=== PATIENT | female | born 1955 | race Caucasian/White ===

== ENCOUNTER → 2016-02-28 | Outpatient (CLI) | payer BC ==
--- NOTE | 2016-02-28 15:49 | RAD ---
CT study of the abdomen and pelvis without contrast Indications: Left flank pain and left lower quadrant abdominal pain for 2 days. Technique: Noncontrast helical CT scan abdomen and pelvis was performed using the CT stone protocol. Without contrast, the sensitivity to detect organ pathology and GI tract pathology is decreased. PQRS Compliance Statement: One or more of the following individualized dose reduction techniques were utilized for this examination: 1. Automated exposure control 2. Adjustment of the mA and/or kV according to patient size 3. Use of iterative reconstruction technique Findings: There is a small hypodense nodule within the dome of the right lobe liver which demonstrates Hounsfield unit measurements typical of a cyst. More inferiorly within the lateral aspect of the posterior segment of the right lobe of the liver, a small hypodense nodule is seen which most likely represents another small cyst although it is indeterminate due to it's smaller size and Hounsfield unit measurements of 24. The spleen is not enlarged. The pancreas is homogeneous on this noncontrast study. The gallbladder is normal and no extra hepatic biliary ductal dilatation is seen. No adrenal mass is evident. Nonobstructing punctate stones of both kidneys are seen. No hydronephrosis or hydroureter or ureteral stone is seen on either side. There is a mass of the lower pole of the right kidney measuring 4.6 cm which demonstrates Hounsfield unit measurements in the 30s. Therefore, could represent solid mass or hyperdense cyst. Recommend sonography for further evaluation. No focal aneurysmal dilatation of the abdominal aorta is seen. No enlarged abdominal or pelvic lymphadenopathy is evident. No uterine mass or fibroid is seen. No dominant ovarian cyst or mass is seen. Urinary bladder wall is smooth. No free air or free fluid or inflammatory change is seen. No lung base consolidation is evident. No osteolytic process is seen. IMPRESSION: Lower pole right renal mass. Recommend sonography for further evaluation. Small indeterminate hypodense nodule of the posterior segment of the right lobe of liver most likely represents a small cyst. Nonobstructing punctate stones of both kidneys.. No acute abnormality of the abdomen or pelvis is seen otherwise..
== END | disposition home or self-care (01) ==
LOC: CT 14:29
PROVIDERS: ATTEND Nurse Practitioner
DX: N20.0 Calculus of kidney (principal); R31.9 Hematuria, unspecified; M54.9 Dorsalgia, unspecified; E11.9 Type 2 diabetes mellitus without complications; I10 Essential (primary) hypertension; R10.32 Left lower quadrant pain; N28.89 Other specified disorders of kidney and ureter
CPT/HCPCS: 74176

== ENCOUNTER → 2016-03-05 | Outpatient (CLI) | payer BC ==
--- NOTE | 2016-03-05 16:24 | RAD ---
Renal ultrasound, 03/05/2016: History: Right renal mass The right kidney measures 11.8 cm in length while the left kidney measures 12.4 cm. There is a 4.1 cm mass arising from the lateral aspect of the lower pole of the right kidney. It is predominantly solid with internal color flow. A neoplastic etiology is suspected. No other renal mass is evident. No hydronephrosis is present. Bilateral renal calculi seen on the recent CT study were not visualized sonographically. Limited views of urinary bladder are unremarkable. IMPRESSION: Solid right renal mass suspicious for malignancy. Multiphasic CT scanning of the abdomen or CT urography is suggested for further evaluation.
== END | disposition home or self-care (01) ==
LOC: US 15:42
PROVIDERS: ATTEND Nurse Practitioner
DX: N28.89 Other specified disorders of kidney and ureter (principal)
CPT/HCPCS: 76770

== ENCOUNTER → 2017-09-14 | Outpatient (CLI) | payer BC ==
--- NOTE | 2017-09-14 12:34 | KCIC ---
PQRS Compliance Statement: One or more of the following individualized dose reduction techniques were utilized for this examination: 1. Automated exposure control 2. Adjustment of the mA and/or kV according to patient size 3. Use of iterative reconstruction technique CT chest low-dose lung screening September 14, 2017 INDICATION: History of tobacco use. History of right renal cell carcinoma 2016. Smoker for 45 years with 2 pack a day history. COMPARISON: None available TECHNIQUE: Multiple axial CT images of the chest were obtained utilizing low-dose technique. Coronal and sagittal reformats are provided. FINDINGS: The thyroid gland is normal in appearance. There are no pathologically enlarged axillary, mediastinal or hilar lymph nodes. Heart size is within normal limits. There is no pericardial effusion. Thoracic aorta is ectatic measuring 4.0 cm involving the ascending segment. Mild atherosclerotic calcifications are present. There is a benign calcified granuloma in the right upper lobe measuring 4 mm (series 3, image 77). There is an additional 2 mm benign calcified granuloma in the inferior lingula (series 3, image 205). No suspicious solid noncalcified pulmonary nodules are identified. There are no pleural effusions. No pulmonary vascular congestion or pneumothorax. The right kidney is surgically absent. Otherwise, visualized portions of the upper abdomen appear normal. No suspicious osseous abnormalities visualized. Anterior cervical discectomy and fusion hardware is partially profiled in the lower cervical spine. IMPRESSION: 1. There are no suspicious solid noncalcified pulmonary nodules. Lung nodules with benign findings are visualized compatible with calcified granulomas. Lung RADS category 1. Negative. Recommend low-dose noncontrast chest CT in one year. 2. Right sided nephrectomy changes are visualized. 3. 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 Electronically signed by: Lisandra Wilson MD (09/14/2017 12:30 PM) [id number]
== END | disposition home or self-care (01) ==
LOC: KCIC CT 11:19
PROVIDERS: ATTEND Internal Medicine
DX: L92.8 Other granulomatous disorders of the skin and subcutaneous tissue (principal); C64.1 Malignant neoplasm of right kidney, except renal pelvis; I10 Essential (primary) hypertension; E11.9 Type 2 diabetes mellitus without complications; Z72.0 Tobacco use
CPT/HCPCS: G0297

== ENCOUNTER → 2018-07-28 | Outpatient (CLI) | payer BC ==
--- NOTE | 2018-07-28 16:31 | KCIC ---
MRI Lumbar Spine without contrast History: Bilateral leg weakness, previous surgery Technique: Multiplanar, multi sequential noncontrast MR imaging was performed of the lumbar spine. Comparison: None Findings: Lumbar vertebral body stature and AP alignment are maintained. There is mild to moderate degenerative disc disease at L2-3, minimally at L4-5. Conus terminates near L1. There is minimal edema of the anterior superior corner of L3 likely reactive/degenerative in etiology. L1-L2: This level was not included on the axial images. Spinal canal and neural foramina are adequate. L2-L3: There is minimal disc osteophyte complex and bulge. There is minimal buckling of the ligamentum flavum. Spinal canal and neural foramina are adequate. L3-L4: There is minimal buckling of the ligamentum flavum. Spinal canal and neural foramina are adequate. L4-L5: There are laminectomy defects. There is broad posterior protrusion about 2 about 3 mm AP, mild indentation upon the ventral thecal sac, spinal canal not significantly narrowed. There is moderate to severe narrowing of the left neural foramen by disc osteophyte complex and facet, mild narrowing of the right neural foramen. L5-S1: There is mild facet hypertrophic change and buckling of the ligamentum flavum. There is a small synovial cyst in the far left lateral recess along the margin of the ligamentum flavum greatest dimension about 0.4 cm CC by 0.3 cm AP by 0.4 cm transverse. There is minimal narrowing of the far left lateral recess from posteriorly, light contact of the descending left S1 nerve root without significant displacement. Neural foramina are overall adequate. Impression: 1. There is a small synovial cyst in the far lateral recess at L5-S1 level, minimal narrowing of the far left lateral recess. There is no significant lumbar spinal stenosis. There is degenerative disc disease greatest at L2-3 and to lesser degree at L4-5. There is moderate to severe narrowing of the left L4-5 neural foramen. Electronically signed by: Anam Magallon MD (07/28/2018 4:28 PM) [email or web address]
--- NOTE | 2018-07-28 16:36 | KCIC ---
MRI Brain without contrast History: Ataxia, bilateral leg weakness Technique: Multiplanar, multisequential noncontrast MR imaging was performed of the brain. Comparison: None Findings: There is no evidence of recent infarct or cytotoxic edema. The ventricles, sulci, and cisterns are within normal limits in size and configuration. There is no significant midline shift, intraaxial mass effect, or focal abnormal extra-axial fluid collection. There are several scattered tiny foci of T2 and FLAIR hyperintense signal of the bifrontal white matter, very minimally of the periventricular white matter. There is no significant hemosiderin deposition of the brain parenchyma. There is preservation of the major intracranial flow-voids at the skull base. There is patchy mild fluid of the mastoid air cells bilaterally.The cerebellar tonsils are normal in location. There is no significant abnormality of the pineal gland or pituitary gland. There is minimal left sphenoid sinus mucosal thickening. There is preserved marrow signal of the clivus. Impression: 1. There is no evidence of recent infarct or intracranial mass effect. Very minimal T2 and FLAIR hyperintense abnormality of the supratentorial parenchyma is nonspecific, could be due to chronic microvascular ischemic disease. White matter changes can be seen in patients with migraine headaches if corresponding history. Electronically signed by: Anam Magallon MD (07/28/2018 4:33 PM) [email or web address]
== END | disposition home or self-care (01) ==
LOC: KCIC MRI 14:53
PROVIDERS: ATTEND Nurse Practitioner Family
DX: M51.36 Other intervertebral disc degeneration, lumbar region (principal); M51.26 Other intervertebral disc displacement, lumbar region; M48.07 Spinal stenosis, lumbosacral region; M25.78 Osteophyte, vertebrae; M89.38 Hypertrophy of bone, other site; M71.38 Other bursal cyst, other site; G43.909 Migraine, unspecified, not intractable, without status migrainosus
CPT/HCPCS: 70551; 72148